=== PATIENT | male | born 1990 | race African-American/Black ===

== ENCOUNTER 2020-05-24 01:30 | Emergency (ER) | payer MEDICAID ==
[~2020-05-24] VITALS: Ht 188 cm; Wt 77.1 kg
[2020-05-24 04:27] LABS: CREATININE 1.1 mg/dL (0.6-1.3); POTASSIUM 3.8 mmol/L (3.5-5.1)
[2020-05-24 04:28] LABS: CALCIUM 8.5 mg/dL (8.5-10.1)
[2020-05-24 04:37] LABS: ALCOHOL < 10 mg/dL (<10); SALICYLATE < 2.8 mg/dL (2.8-20.0)
[2020-05-24 04:39] LABS: ACETAMINOPHEN < 2 ug/mL (10-30)
[2020-05-24 04:41] LABS: ABSOLUTE EOSINOPHILS 0.1 thou/uL (0.0-0.7); ABSOLUTE LYMPHOCYTES 2.3 thou/uL (0.8-5.3); ABSOLUTE MONOCYTES 0.5 thou/uL (0.0-1.2); ABSOLUTE NEUTROPHILS 4.7 thou/uL (1.6-8.1); BASOPHILS 0.5 %; EOSINOPHILS 1.3 %; HEMATOCRIT 33.1 % (42.0-52.0); HEMOGLOBIN 11.4 gm/dL (14.0-18.0); MCH 30.8 pg (26.0-34.0); MCHC 34.5 g/dL (28.0-37.0); MCV 89.3 fL (80.0-100.0); MONOCYTES 6.3 %; MPV 9.1 fl. (7.2-11.1); NUCLEATED RBCS 0 /100WBC; PLATELET COUNT* 164 thou/uL (150-400); POLYS 61.9 %; RBC 3.71 mil/uL (4.50-6.00); RDW-CV 13.6 % (10.5-14.5); WBC 7.5 thou/uL (4.0-11.0)
[2020-05-24 04:42] LABS: URINE CLARITY CLEAR; URINE COLOR YELLOW; URINE GLUCOSE-RANDOM NEGATIVE (Negative); URINE PROTEIN NEGATIVE (Negative); URINE REDUCING SUBSTANCE NEGATIVE (Negative); URINE SPECIFIC GRAVITY > 1.030 (1.005-1.030)
[2020-05-24 04:43] LABS: ACETEST (KETONE CONFIRMATORY) Negative (Negative); URINE BILIRUBIN NEGATIVE (Negative); URINE BLOOD NEGATIVE (Negative); URINE KETONES NEGATIVE (Negative); URINE LEUKOCYTES NEGATIVE (Negative); URINE NITRITE NEGATIVE (Negative); URINE UROBILINOGEN 0.2 E.U./dl (0.2-1.0)
[2020-05-24 06:11] LABS: AMP/METHAMP POSITIVE (Negative); BARBITURATES Negative (Negative); BENZODIAZEPINES Negative (Negative); COCAINE Negative (Negative); METHADONE Negative (Negative); OPIATES Negative (Negative); PCP Negative (Negative); THC Negative (Negative)
[2020-05-25 10:05] VITALS: BP 132/73
== END 2020-05-25 10:06 | disposition home or self-care (01) ==
LOC: M.ERS 01:30
PROVIDERS: Personal Emergency Response Attendant
DX: F32.9 Major depressive disorder, single episode, unspecified (principal); Z20.828 Contact with and (suspected) exposure to other viral communicable diseases; R45.851 Suicidal ideations; R45.850 Homicidal ideations; Z88.0 Allergy status to penicillin

== ENCOUNTER 2021-06-20 03:52 | Emergency (ER) | payer MEDICAID ==
[~2021-06-20] VITALS: Ht 188 cm; Wt 63.5 kg
[2021-06-20 04:07] LABS: URINE BLOOD NEGATIVE (Negative); URINE CLARITY CLEAR; URINE COLOR YELLOW; URINE GLUCOSE-RANDOM NEGATIVE (Negative); URINE KETONES 1+ (Negative); URINE LEUKOCYTES NEGATIVE (Negative); URINE NITRITE NEGATIVE (Negative); URINE PROTEIN TRACE (Negative); URINE SPECIFIC GRAVITY 1.025 (1.005-1.030)
[2021-06-20 04:09] LABS: ICTOTEST (BILI CONFIRMATORY) Negative (Negative); URINE BILIRUBIN 2+ (Negative)
[2021-06-20 04:14] LABS: AMP/METHAMP POSITIVE (Negative); BARBITURATES Negative (Negative); BENZODIAZEPINES Negative (Negative); COCAINE Negative (Negative); METHADONE Negative (Negative); OPIATES Negative (Negative); PCP Negative (Negative); THC Negative (Negative)
[2021-06-20] MEDS ORDERED: ADDERALL 10 MG10 MG PO (04:14)
[2021-06-20 04:43] LABS: HEMATOCRIT 34.2 % (42.0-52.0); HEMOGLOBIN 11.5 gm/dL (14.0-18.0); MCH 29.9 pg (26.0-34.0); MCHC 33.6 g/dL (28.0-37.0); MCV 89.2 fL (80.0-100.0); MPV 8.3 fl. (7.2-11.1); RBC 3.83 mil/uL (4.50-6.00); WBC 8.2 thou/uL (4.0-11.0)
[2021-06-20 04:50] LABS: CALCIUM 8.8 mg/dL (8.5-10.1); POTASSIUM 3.5 mmol/L (3.5-5.1)
[2021-06-20 04:55] LABS: ALBUMIN 4.2 g/dL (3.4-5.0); TOTAL BILIRUBIN 0.4 mg/dL (<0.1-1.0); TOTAL PROTEIN 7.2 g/dL (6.4-8.2)
[2021-06-20 05:15] LABS: ALCOHOL < 10 mg/dL (<10); SALICYLATE < 2.8 mg/dL (2.8-20.0)
[2021-06-20 05:28] LABS: ACETAMINOPHEN < 2 ug/mL (10-30)
[2021-06-20 05:38] VITALS: BP 100/59
== END 2021-06-20 05:41 | disposition home or self-care (01) ==
LOC: M.ERS 03:52
PROVIDERS: Personal Emergency Response Attendant
DX: F29 Unspecified psychosis not due to a substance or known physiological condition (principal); Z20.822 Contact with and (suspected) exposure to COVID-19; Z79.899 Other long term (current) drug therapy; Z88.0 Allergy status to penicillin